=== PATIENT | female | born 1945 | race African-American/Black ===

== ENCOUNTER 2024-11-15 12:52 | Emergency (ER) | payer MEDICARE, SELFPAY ==
[~2024-11-15] VITALS: Ht 175.3 cm; Wt 77.0 kg
[2024-11-15 12:54] VITALS: O2SAT 97
[2024-11-15 14:00] LABS: BASOPHILS % 0.4 % (0.0-2.0); EOSINOPHILS % 1.3 % (0.0-5.0); HEMATOCRIT. 36.0 % (36.0-48.0); HEMOGLOBIN. 11.4 g/dL (12.0-16.0); LYMPHOCYTES % 18.9 % (20.0-50.0); MEAN PLATELET VOLUME 9.4 fl (7.4-10.4); MONOCYTES % 6.8 % (2.0-8.0); NEUTROPHILS % 72.6 % (40.0-76.0); PLATELET 190 x1000/uL (130-400); RED BLOOD CELL COUNT 4.11 mill/uL (4.2-5.4); RED CELL DISTRIBUTION WIDTH 15.4 % (11.6-14.6)
[2024-11-15 14:14] LABS: CREATININE 0.9 mg/dL (0.6-1.0); UREA NITROGEN BLOOD 14 mg/dL (9-23)
[2024-11-15 14:15] LABS: TROPONIN I HIGH SENSITIVITY 8 ng/L (3.0-34)
[2024-11-15 16:00] VITALS: BP 147/67; PULSE 58; RESP 15; TEMP 37.1; O2SAT 98
== END 2024-11-15 16:07 | disposition home or self-care (01) ==
LOC: ER 12:52
DX: R55 Syncope and collapse (principal); I10 Essential (primary) hypertension; R06.02 Shortness of breath; Z88.0 Allergy status to penicillin; Z86.39 Personal history of other endocrine, nutritional and metabolic disease
CPT/HCPCS: 36415; 80048; 83735; 83880; 84484; 85025; 93005; 99283; A4606

== ENCOUNTER 2025-02-02 20:07 | Emergency (ER) | payer MEDICARE ==
[~2025-02-02] VITALS: Ht 177.8 cm; Wt 73.0 kg
[2025-02-02 20:40] VITALS: O2SAT 99
[2025-02-02] MEDS: HYDRALAZINE 20MG/ML VIAL IV STA (21:17)
[2025-02-02] MEDS ORDERED: METH-371 PO (21:31)
[2025-02-02 21:45] LABS: BASOPHILS % 1.3 % (0.0-2.0); EOSINOPHILS % 2.7 % (0.0-5.0); HEMATOCRIT. 39.2 % (36.0-48.0); HEMOGLOBIN. 12.2 g/dL (12.0-16.0); LYMPHOCYTES % 38.7 % (20.0-50.0); MEAN PLATELET VOLUME 10.6 fl (7.4-10.4); MONOCYTES % 8.8 % (2.0-8.0); NEUTROPHILS % 48.5 % (40.0-76.0); PLATELET 173 x1000/uL (130-400); RED BLOOD CELL COUNT 4.42 mill/uL (4.2-5.4); RED CELL DISTRIBUTION WIDTH 13.9 % (11.6-14.6)
[2025-02-02 22:05] LABS: CREATININE 0.7 mg/dL (0.6-1.0)
[2025-02-02 22:06] LABS: TROPONIN I HIGH SENSITIVITY 19 ng/L (3.0-34); UREA NITROGEN BLOOD 8 mg/dL (9-23)
[2025-02-02] MEDS: KETOROLAC 15MG/ML VIAL IV ONE (22:34)
[2025-02-02 22:35] LABS: CLARITY URINE CLOUDY (CLEAR); COLOR URINE YELLOW (YELLOW); GLUCOSE URINE NEGATIVE (NEGATIVE); KETONES URINE NEGATIVE (NEGATIVE); LEUKOCYTE ESTERASE URINE NEGATIVE (NEGATIVE); NITRITE URINE NEGATIVE (NEGATIVE); OCCULT BLOOD URINE NEGATIVE (NEGATIVE); PH URINE 7.5 (4.5-8.0); PROTEIN URINE NEGATIVE (NEGATIVE); SPECIFIC GRAVITY URINE 1.009 (1.005-1.030); UROBILINOGEN URINE 0.2 E.U./dL (0.2-1.0)
[2025-02-02 23:03] LABS: BACTERIA URINE 1+; RBC URINE 0-2 /hpf (0-2); SQUAMOUS EPITHELIAL CELL URINE 1+ /lpf (RARE/1+)
[2025-02-02 23:59] VITALS: BP 150/69; PULSE 82; RESP 18; TEMP 36.8; O2SAT 100
== END 2025-02-03 00:16 | disposition home or self-care (01) ==
LOC: ER 20:20 → CMPBEDREQ 02-03 08:11
DX: I16.0 Hypertensive urgency (principal); I10 Essential (primary) hypertension; R51.9 Headache, unspecified; Z88.0 Allergy status to penicillin
CPT/HCPCS: 99284; 96374; 70450; 71045; 96375; 80048; 81003; 83880; 83735; 85025; 84484; 36415; 93005; J1885; J0360; A4606

== ENCOUNTER 2025-02-07 16:11 | Emergency (ER) | payer MEDICARE ==
[~2025-02-07] VITALS: Ht 175.3 cm; Wt 73.0 kg
[~2025-02-07 16:11] MED LIST: METH-371 PO
[2025-02-07 16:23] VITALS: O2SAT 100
[2025-02-07] MEDS: LOSARTAN 50 MG TABLET PO ONE (17:45)
[2025-02-07] MEDS: HYDRALAZINE HCL 25MG TABLET PO ONE (17:45)
[2025-02-07 19:08] LABS: BASOPHILS % 0.9 % (0.0-2.0); EOSINOPHILS % 2.5 % (0.0-5.0); HEMATOCRIT. 38.9 % (36.0-48.0); HEMOGLOBIN. 12.1 g/dL (12.0-16.0); LYMPHOCYTES % 41.7 % (20.0-50.0); MEAN PLATELET VOLUME 10.5 fl (7.4-10.4); MONOCYTES % 9.2 % (2.0-8.0); NEUTROPHILS % 45.7 % (40.0-76.0); PLATELET 188 x1000/uL (130-400); RED BLOOD CELL COUNT 4.39 mill/uL (4.2-5.4); RED CELL DISTRIBUTION WIDTH 13.9 % (11.6-14.6)
[2025-02-07 19:20] LABS: CREATININE 0.7 mg/dL (0.6-1.0); UREA NITROGEN BLOOD 8 mg/dL (9-23)
[2025-02-07 19:22] LABS: TROPONIN I HIGH SENSITIVITY 15 ng/L (3.0-34)
[2025-02-07 20:08] VITALS: BP 147/81; PULSE 83; RESP 13; TEMP 36.7; O2SAT 100
== END 2025-02-07 20:08 | disposition home or self-care (01) ==
LOC: ER 16:11
DX: I10 Essential (primary) hypertension (principal); F10.90 Alcohol use, unspecified, uncomplicated; Z55.6 Problems related to health literacy; Z88.0 Allergy status to penicillin; Y90.9 Presence of alcohol in blood, level not specified
CPT/HCPCS: 36415; 80048; 84484; 85025; 99282; 99283